=== PATIENT | male | born 1990 | race Caucasian/White ===

== ENCOUNTER 2016-05-21 01:25 | Emergency (ER) | payer BC, OTHER ==
[~2016-05-21] VITALS: Ht 172.7 cm; Wt 79.1 kg
[~2016-05-21 01:25] MED LIST: ONDA4TAB46 PO; PHEN-905 PO
[2016-05-21 01:30] VITALS: TEMP 36.9; Ht 172.7 cm; Wt 79.1 kg
[2016-05-21] MEDS ORDERED: SODIUM CHLORIDE 0.9% 1000ML 1,000 ML IV STA ×2 (01:47)
[2016-05-21] MEDS ORDERED: LORAZEPAM 2 MG/ML 1 ML VIAL IV STA (01:47)
[2016-05-21] MEDS ORDERED: ONDANSETRON INJ 2 MG/ML 2 ML VIAL IV STA (01:47)
[2016-05-21] MEDS ORDERED: CHLORDIAZEPOXIDE 25 MG CAP PO ONE ×2 (02:00→04:15)
[2016-05-21] MEDS ORDERED: MULTI-VITAMIN INFUSION INJ 10 ML, THIAMINE HCL INJ 100 MG, FoLIC ACID INJ 1 MG in SODIU... IV ONE (02:00)
[2016-05-21] MEDS ORDERED: PANTOprazole INJ 40 MG in SYRINGE 0 ML IV ONE (02:00)
[2016-05-21] MEDS ORDERED: LXP10 PO (02:03)
[2016-05-21 02:12] LABS: BASO % 0.6 %; BASO ABS # 0.04 K/uL (0-0.2); COMPLETE YES; EOS % 2.2 %; HEMATOCRIT 47.7 % (42-52); IG% 0.3 %; LYMPH % 30.3 %; LYMPH ABS # 2.07 K/uL (1.2-3.4); MEAN CELL VOLUME 89.3 fL (80-100); MEAN CORPUSCULAR HEMOGLOBIN 31.3 pg (25-34); MEAN PLATELET VOLUME 10.4 fL (7.4-10.4); MONO % 11.1 %; NEUT % 55.5 %; PLATELET COUNT 213 K/uL (130-400); RED BLOOD COUNT 5.34 M/uL (4.7-6.1); WHITE BLOOD COUNT 6.84 K/uL (4.8-10.8)
[2016-05-21 02:26] VITALS: O2SAT 98
[2016-05-21 02:32] LABS: BUN/CREATININE RATIO 8.8 (10-20); CALCIUM 9.5 mg/dl (8.5-10.1); CREATININE 1.3 mg/dl (0.60-1.40); POTASSIUM 3.9 mmol/L (3.5-5.1)
[2016-05-21 02:43] LABS: THYROID STIMULATING HORMONE 4.4 uIu/ml (0.300-4.500)
[2016-05-21 02:49] LABS: MANUAL MICROSCOPIC REQUIRED? NO; URINE APPEARANCE CLEAR (CLEAR); URINE BILIRUBIN NEG (NEG); URINE COLOR YELLOW; URINE NITRITE NEG (NEG); URINE SPECIFIC GRAVITY 1.025 (1.000-1.030); UROBILINOGEN NEG (NEG)
[2016-05-21 02:50] LABS: REVIEW REQ? NO
--- NOTE | 2016-05-21 04:08 | EMERGENCY ROOM VISIT NOTE ---
History First contact with patient: 01:34 Chief Complaint: OTHER COMPLAINT Stated Complaint: ALCOHOL WITHDRAW, INSOMNIA 35HRS, NAUSEA History of Present Illness The patient is a 26 year old male who presents to the Emergency Room with complaints of alcohol withdrawal. Patient states he was binge drinking the past 3 days. Patient's been vomiting since yesterday morning. His last request Saturday at 3 AM. He has a history of alcoholism with DTs. No known seizure from alcohol withdrawal. Patient denies chest pain, dyspnea, abdominal pain, fever, chills, delusions, hallucinations. Patient states he can't sleep. Review of Systems See HPI for pertinent positives & negatives. A total of 10 systems reviewed and were otherwise negative. Past Medical/Surgical History Medical Problems: (1) Concussion (2) MRSA (methicillin resistant Staphylococcus aureus) Family History No pertinent family history Social History Smoking Status: Former Smoker Alcohol Use: other Drug Use: none Marital Status: in relationship Housing Status: lives with family Occupation Status: employed Current/Historical Medications Scheduled Escitalopram Oxalate (Escitalopram Oxalate), 10 MG PO DAILY Allergies Coded Allergies: Sulfa Drugs (Verified Allergy, Intermediate, RASH, 05/21/16) Vancomycin (Verified Adverse Reaction, Unknown, REDNESS--REDMANS SYNDROME? , 05/21/16) Physical Exam Vital Signs Date Time Temp Pulse Resp B/P Pulse Ox O2 Delivery O2 Flow Rate FiO2 05/21/16 03:23 54 20 122/61 97 Room Air 05/21/16 02:26 50 123/74 98 Room Air 55 133/83 80 138/83 05/21/16 02:26 98 Room Air 05/21/16 02:01 60 05/21/16 01:30 36.9 67 18 158/85 96 Room Air Physical Exam VITALS: Vitals are noted on the nurse's note and reviewed by myself. Vital signs stable. GENERAL: Pleasant male mildly tremulous, in no acute distress, nondiaphoretic, well-developed well-nourished. SKIN: The skin was without rashes, erythema, edema, or bruising. There is no tenting of the skin. Capillary reflex less than 2 seconds. HEAD: Normocephalic atraumatic. EARS: External auditory canals clear, tympanic membranes pearly guevara without erythema or effusion bilaterally. EYES: Pupils equal round and reactive to light and accommodation. Conjunctivae without injection, sclerae without icterus. Extraocular movements intact. NOSE: Patent, turbinates without inflammation or discharge. No sinus tenderness. MOUTH: Mucous membranes mildly dry. Pharynx without erythema or exudate. Uvula midline. Airway patent. Tongue does not deviate. NECK: Supple without nuchal rigidity. No lymphadenopathy. No thyromegaly. Cervical spine is nontender. No JVD. HEART: Regular rate and rhythm without murmurs gallops or rubs. LUNGS: Clear to auscultation bilaterally without wheezes, rales or rhonchi. No dullness to percussion. No retractions or accessory muscle use. ABDOMEN: Positive bowel sounds x 4. Normal tympanic percussion. Soft, nontender, without masses or organomegaly. Chacon sign negative. No guarding or rebound tenderness. MUSCULOSKELETAL: No muscle atrophy, erythema, or edema noted. NEURO: Patient was alert and oriented to person place and time. Normal sensation to light and sharp touch. No focal neurological deficits. Medical Decision & Procedures Laboratory Results 05/21/16 01:55 Red Blood Count 5.34, Mean Corpuscular Volume 89.3, Mean Corpuscular Hemoglobin 31.3, Mean Corpuscular Hemoglobin Concent 35.0, Mean Platelet Volume 10.4, Neutrophils (%) (Auto) 55.5, Lymphocytes (%) (Auto) 30.3, Monocytes (%) (Auto) 11.1, Eosinophils (%) (Auto) 2.2, Basophils (%) (Auto) 0.6, Neutrophils # (Auto ) 3.80, Lymphocytes # (Auto) 2.07, Monocytes # (Auto) 0.76, Eosinophils # (Auto ) 0.15, Basophils # (Auto) 0.04 05/21/16 01:55 Test 05/21/16 01:55 05/21/16 02:08 05/21/16 02:35 White Blood Count 6.84 K/uL (4.8-10.8) Red Blood Count 5.34 M/uL (4.7-6.1) Hemoglobin 16.7 g/dL (14.0-18.0) Hematocrit 47.7 % (42-52) Mean Corpuscular Volume 89.3 fL (80-100) Mean Corpuscular Hemoglobin 31.3 pg (25-34) Mean Corpuscular Hemoglobin Concent 35.0 g/dl (32-36) Platelet Count 213 K/uL (130-400) Mean Platelet Volume 10.4 fL (7.4-10.4) Neutrophils (%) (Auto) 55.5 % Lymphocytes (%) (Auto) 30.3 % Monocytes (%) (Auto) 11.1 % Eosinophils (%) (Auto) 2.2 % Basophils (%) (Auto) 0.6 % Neutrophils # (Auto) 3.80 K/uL (1.4-6.5) Lymphocytes # (Auto) 2.07 K/uL (1.2-3.4) Monocytes # (Auto) 0.76 K/uL (0.11-0.59) Eosinophils # (Auto) 0.15 K/uL (0-0.5) Basophils # (Auto) 0.04 K/uL (0-0.2) RDW Standard Deviation 39.5 fL (36.4-46.3) RDW Coefficient of Variation 12.3 % (11.5-14.5) Immature Granulocyte % (Auto) 0.3 % Immature Granulocyte # (Auto) 0.02 K/uL (0.00-0.02) Anion Gap 10.0 mmol/L (3-11) Est Creatinine Clear Calc Drug Dose 84.7 ml/min Estimated GFR () 88.5 Estimated GFR (Non- 76.4 BUN/Creatinine Ratio 8.8 (10-20) Calcium Level 9.5 mg/dl (8.5-10.1) Total Bilirubin 0.9 mg/dl (0.2-1) Direct Bilirubin 0.2 mg/dl (0-0.2) Aspartate Amino Transf (AST/SGOT) 16 U/L (15-37) Alanine Aminotransferase (ALT/SGPT) 25 U/L (12-78) Alkaline Phosphatase 69 U/L (45-117) Total Protein 8.5 gm/dl (6.4-8.2) Albumin 4.6 gm/dl (3.4-5.0) Thyroid Stimulating Hormone (TSH) 4.400 uIu/ml (0.300-4.500) Ethyl Alcohol mg/dL < 3.0 mg/dl (0-3) Urine Color YELLOW Urine Appearance CLEAR (CLEAR) Urine pH 6.0 (4.5-7.5) Urine Specific [place] 1.025 (1.000-1.030) Urine Protein NEG (NEG) Urine Glucose (UA) NEG (NEG) Urine Ketones NEG (NEG) Urine Occult Blood NEG (NEG) Urine Nitrite NEG (NEG) Urine Bilirubin NEG (NEG) Urine Urobilinogen NEG (NEG) Urine Leukocyte Esterase NEG (NEG) Medications Administered Medications (Trade) Dose Ordered Sig/Linda Route Start Time Stop Time Status Last Admin Dose Admin Chlordiazepoxide (Librium Cap) 50 mg NOW ONCE PO 05/21/16 02:00 05/21/16 02:01 DC 05/21/16 02:23 50 MG Lorazepam 1 mg 1 mg NOW STAT IV 05/21/16 01:47 05/21/16 01:49 DC 05/21/16 02:21 1 MG Pantoprazole Sodium 40 mg/ Syringe 10 ml @ 5 mls/min NOW ONCE IV 05/21/16 02:00 05/21/16 02:01 DC 05/21/16 02:21 5 MLS/MIN Multivitamins 10 ml/Thiamine HCl 100 mg/Folic Acid 1 mg/Sodium Chloride 1,011.2 ml @ 150 mls/ hr Q6H45M ONCE IV 05/21/16 02:00 05/21/16 08:44 05/21/16 02:23 150 MLS/HR Sodium Chloride 1,000 ml @ 999 mls/hr Q1H1M STAT IV 05/21/16 01:47 05/21/16 02:47 DC 05/21/16 02:20 999 MLS/HR Sodium Chloride (Nss 1000ml) 1,000 ml @ 125 mls/hr Q8H STAT IV 05/21/16 01:47 05/21/16 09:46 05/21/16 02:20 125 MLS/HR Ondansetron HCl (Zofran Inj) 4 mg NOW STAT IV 05/21/16 01:47 05/21/16 01:50 DC 05/21/16 02:20 4 MG ED Course Prior records/ancillary studies reviewed and summarized above. Nursing notes reviewed. The patient's history was concerning for shakiness after binge drinking. Differential diagnosis: Etiologies such as alcohol withdrawal, DTs, seizures, metabolic, infection, hypo /hyperglycemia, electrolyte abnormalities, cardiac sources, intracerebral event , toxicologic, neurologic, as well as others were entertained. Physical examination: As above. ER treatment provided: IV Lock Banana bag, Librium, Ativan On reassessment the patient felt better. Diagnostics interpretation by me: ECG: Normal sinus, normal intervals, no acute ST-T wave changes. Impression normal sinus rhythm interpreted by myself The labs revealed negative alcohol. No worrisome leukocytosis Exam and history seem consistent with alcohol withdrawal. Patient felt much better after being medicated as above. He is tolerating fluids and crackers. He requested to leave. He did not want information on rehabilitation. He was advised avoid alcohol at all cost and to attend . He was started on Librium and Ativan. He is advised follow-up family care in a few days or here in the ER sooner for shakiness, seizures, delusions, hallucinations, worsening signs or symptoms or as needed. By the evaluation outlined above emergent etiologies such as infection, electrolyte abnormalities, cardiac sources, intracerebral event, neurologic, abnormalities blood glucose, metabolic, as well as others were deemed relatively unlikely. The pt informed about the findings as listed above. All questions were answered and pleased with the treatment. Return instructions were outlined and the patient was discharged in stable condition. Outpatient prescription management: librium, ativan Referral: The patient was referred back to primary care physician for follow-up in 2 to 3 days for a recheck of the current condition. Case reviewed with my attending Medical Decision As above Impression Primary Impression: Alcohol withdrawal Departure Information Dispostion Home / Self-Care Condition GOOD Referrals Zee Jesus M.D. (PCP) Patient Instructions My [facility] Additional Instructions Librium 25 m tablet every 8 hours as needed for shakiness. No alcohol or driving on this medication. Ativan 1 m tablet every 6-8 hours as needed for anxiety and shakiness. No alcohol or driving on this medication. Recommend to avoid all alcohol. Recommend that you go to AA. Rest and drink plenty of fluids as tolerated. Continue current medications. Return to the ER immediately for worsening or persistent shakiness, abdominal pain, vomiting, fevers, chest pains, difficulty breathing, worsening of your condition, or as needed. Follow up with your primary physician in 2-3 days for a recheck of your current condition. Problem Qualifiers Primary Impression: Alcohol withdrawal Complication of substance-induced condition: uncomplicated Qualified Codes: F10.230 - Alcohol dependence with withdrawal, uncomplicated
[2016-05-21] MEDS ORDERED: CHLO25CA10 PO (04:09)
[2016-05-21] MEDS ORDERED: ATV/1 PO (04:09)
[2016-05-21] MEDS ORDERED: ATIVAN 1MG HOMEPACK PO ONE (04:15)
[2016-05-21] MEDS ORDERED: EMPTY 8 DRAM VIAL ONE (04:29)
[2016-05-21 04:44] VITALS: BP 129/70; PULSE 65; O2SAT 97
== END 2016-05-21 04:46 | disposition home or self-care (01) ==
LOC: C.EDB 01:26
DX: F10.239 Alcohol dependence with withdrawal, unspecified (principal); R11.2 Nausea with vomiting, unspecified; G47.00 Insomnia, unspecified; Z87.820 Personal history of traumatic brain injury; Z86.14 Personal history of Methicillin resistant Staphylococcus aureus infection

== ENCOUNTER 2016-11-17 19:29 | Emergency (ER) | payer OTHER ==
[~2016-11-17] VITALS: Ht 172.7 cm; Wt 78.5 kg
[~2016-11-17 19:29] MED LIST changes: +CHLO25CA10 PO; +LXP10 PO; -ONDA4TAB46 PO; -PHEN-905 PO
[2016-11-17 19:31] VITALS: TEMP 36.6; Ht 172.7 cm; Wt 78.5 kg
[2016-11-17] MEDS ORDERED: METHYLPREDNISOLONE 125 MG VIAL IV STA (19:43)
[2016-11-17] MEDS ORDERED: ALBUT/IPRATROP 3MG/0.5MG NEB 3 ML VIAL INH STA ×2 (19:43→21:16)
[2016-11-17 20:05] VITALS: O2SAT 97
[2016-11-17 20:07] LABS: BASO % 1.2 %; BASO ABS # 0.07 K/uL (0-0.2); COMPLETE YES; EOS % 2.5 %; HEMATOCRIT 44.4 % (42-52); IG% 0.5 %; LYMPH % 29.3 %; LYMPH ABS # 1.67 K/uL (1.2-3.4); MEAN CELL VOLUME 88.6 fL (80-100); MEAN CORPUSCULAR HEMOGLOBIN 30.7 pg (25-34); MEAN CORPUSCULAR HGB CONC 34.7 g/dl (32-36); MEAN PLATELET VOLUME 10.1 fL (7.4-10.4); MONO % 12.1 %; NEUT % 54.4 %; PLATELET COUNT 254 K/uL (130-400); RED BLOOD COUNT 5.01 M/uL (4.7-6.1); WHITE BLOOD COUNT 5.69 K/uL (4.8-10.8)
--- NOTE | 2016-11-17 20:14 | DIAGNOSTIC IMAGING REPORT ---
CHEST ONE VIEW PORTABLE CLINICAL HISTORY: Shortness of breath. Hemoptysis. COMPARISON STUDY: 01/30/2016 FINDINGS: The cardiac and mediastinal contours are normal. There is no evidence of focal pulmonary consolidation. There is no evidence of failure. No pleural effusions are visualized.[ IMPRESSION: No active disease in the chest. Electronically signed by: Jose Luis Fowler M.D. 11/17/2016 8:12 PM Dictated Date/Time: 11/17/2016 8:12 PM
[2016-11-17] MEDS ORDERED: TRAZ50TA35 PO (20:25)
[2016-11-17 20:36] LABS: ALB/GLOB RATIO 1.4 (0.9-2); BUN/CREATININE RATIO 8.9 (10-20); CALCIUM 9.9 mg/dl (8.5-10.1); CREATININE 1.1 mg/dl (0.60-1.40); POTASSIUM 3.7 mmol/L (3.5-5.1)
[2016-11-17] MEDS ORDERED: ALBUTEROL HFA 8 GM INHALER INH ONE (22:15)
[2016-11-17 22:22] VITALS: BP 130/66; PULSE 86; O2SAT 98
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
== END 2016-11-17 22:23 | disposition home or self-care (01) ==
LOC: C.EDB 19:30 → C.EDC 22:23
DX: T59.811A Toxic effect of smoke, accidental (unintentional), initial encounter (principal); J68.9 Unspecified respiratory condition due to chemicals, gases, fumes and vapors; J45.909 Unspecified asthma, uncomplicated; Z86.14 Personal history of Methicillin resistant Staphylococcus aureus infection; Z87.820 Personal history of traumatic brain injury; Z87.891 Personal history of nicotine dependence

== ENCOUNTER 2017-07-12 19:03 | Emergency (ER) | payer OTHER ==
[~2017-07-12] VITALS: Ht 172.7 cm; Wt 83.6 kg
[~2017-07-12 19:03] MED LIST changes: -CHLO25CA10 PO; +TRAZ50TA35 PO
[2017-07-12 19:07] VITALS: TEMP 37; Ht 172.7 cm; Wt 83.6 kg
[2017-07-12 20:23] VITALS: BP 149/88; PULSE 67; O2SAT 95
--- NOTE | 2017-07-12 21:15 | EMERGENCY ROOM VISIT NOTE ---
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 The patient reports that he and a coworker were escorting a prisoner out of his cell when the prisoner through a handful of suspected urine and feces at them. The patient reports that the majority of the body fluids hit his clothing. He did not feel anything hit his face, but has a campbell and could certainly have contaminated the campbell. He reports that some of the fluids got down inside of his gloves. He immediately put the mcfp her back in his cell, then went to wash his hands. The prisoner is known HIV positive. They contacted their correction officer medical provider who suggested that the patient start the HIV prophylaxis medications and come to the emergency department for further evaluation. The patient denies any open wounds. He has undergone the hepatitis B immunization series, and denies any prior history of HIV. Review of Systems 10 system review was performed and was negative except for pertinent positives and negatives as indicated in history of present illness Past Medical/Surgical History Medical Problems: (1) Asthma (2) Concussion (3) MRSA (methicillin resistant Staphylococcus aureus) Family History No pertinent family history Social History Smoking Status: Never Smoker Alcohol Use: other Drug Use: none Marital Status: in relationship Housing Status: lives with family Occupation Status: employed Current/Historical Medications Scheduled Escitalopram Oxalate (Escitalopram Oxalate), 10 MG PO DAILY Trazodone Hcl (Trazodone), 50 MG PO HS Physical Exam Vital Signs Date Time Temp Pulse Resp B/P (MAP) Pulse Ox O2 Delivery O2 Flow Rate FiO2 07/12/17 20:23 67 18 149/88 95 07/12/17 19:07 37.0 67 18 149/88 95 Room Air Physical Exam CONSTITUTIONAL: Healthy and well nourished. HEENT: Normocephalic, atraumatic. Pupils equal, round and reactive. No scleral icterus or conjunctival injection/pallor. NECK: Full active range of motion without discomfort. RESPIRATORY: Clear to auscultation bilaterally with no wheezing, crackles, rhonchi or stridor. CARDIOVASCULAR: Regular rate and rhythm with no murmurs, rubs or gallops. GASTROINTESTINAL: Bowel sounds present in all quadrants. MUSCULOSKELETAL: Full range of motion of all joints without discomfort. INTEGUMENTARY: No open wounds are noted on exposed surfaces of the face, arms or hands. NEUROLOGIC: No focal neurologic deficits noted. Medical Decision & Procedures ED Course Patient history and physical exam were performed. Nurse's notes were reviewed. Vital signs were reviewed, showing an elevated blood pressure of 149/88. I did contact the [facility], and spoke with Caren to advise her of the situation. The patient denies any visible blood within the stool or urine. The patient also does not have any open wounds. Caren indicated that this is not considered a significant exposure, and recommended stopping the postexposure HIV prophylaxis. The patient was in agreement with this decision. He was encouraged to follow-up with his Employee Health as needed for further counseling or other questions. The patient was understanding of all discharge instructions. Medical Decision Blood Pressure Screening Patient's blood pressure: Elevated blood pressure Blood pressure disposition: Did not require urgent referral Impression Primary Impression: Employee exposure to body fluids Departure Information Dispostion Home / Self-Care Condition GOOD Forms HOME CARE DOCUMENTATION FORM, IMPORTANT VISIT INFORMATION Patient Instructions My [facility] Additional Instructions After consulting the [facility], this is not considered a significant exposure. You may stop your current medications. Follow-up with your Employee Health for further counseling as needed.
== END 2017-07-12 20:24 | disposition home or self-care (01) ==
LOC: C.EDB 19:05 → C.EDD 20:24
DX: Z77.21 Contact with and (suspected) exposure to potentially hazardous body fluids (principal); Y99.0 Civilian activity done for income or pay; J45.909 Unspecified asthma, uncomplicated; Z79.899 Other long term (current) drug therapy